=== PATIENT | female | born 1985 | race African-American/Black ===

== ENCOUNTER 2017-11-15 22:53 | Emergency (ER) | payer OTHER ==
[~2017-11-15] VITALS: Ht 165.1 cm; Wt 140.0 kg
[~2017-11-15 22:53] MED LIST: OXYC-360 PO; PREN0.01 PO
[2017-11-15 23:14] VITALS: BP 148/75; PULSE 84; RESP 18; TEMP 99; O2SAT 100
[2017-11-16 00:48] LABS: AUTOMATED NEUTROPHIL # 6.5 TH/MM3 (1.8-7.7); BASOPHIL % 0.3 % (0.0-2.0); EOSINOPHIL % 0.3 % (0.0-4.0); HEMATOCRIT 39.3 % (35.0-46.0); HEMOGLOBIN 12.9 GM/DL (11.6-15.3); LYMPH % 21.9 % (9.0-44.0); MEAN CELL VOLUME 81.4 FL (80.0-100.0); MEAN CORPUSCULAR HEMOGLOBIN 26.7 PG (27.0-34.0); MEAN CORPUSCULAR HGB CONC 32.8 % (32.0-36.0); MONO % 5.5 % (0.0-8.0); MONOCYTE # 0.5 TH/MM3 (0-0.9); PLATELET COUNT 301 TH/MM3 (150-450); RED BLOOD COUNT 4.83 MIL/MM3 (4.00-5.30); RED CELL DISTRIBUTION WIDTH 16.4 % (11.6-17.2)
[2017-11-16 00:58] LABS: ALBUMIN 3.2 GM/DL (3.4-5.0); ALT (GPT) 20 U/L (10-53); AST (GOT) 12 U/L (15-37); BICARBONATE 28.5 MEQ/L (21.0-32.0); BLOOD UREA NITROGEN 12 MG/DL (7-18); CALCIUM 8.5 MG/DL (8.5-10.1); CHLORIDE 105 MEQ/L (98-107); CREATININE 0.99 MG/DL (0.50-1.00); GLOMERULAR FILTRATION RATE 78 ML/MIN (>89); GLUCOSE,RANDOM 77 MG/DL (74-106); SODIUM (NA) 141 MEQ/L (136-145)
[2017-11-16] MEDS ORDERED: ONDANSETRON HCL 4 MG/2 ML VIAL IV PUSH ONE ×2 (01:00→04:15)
[2017-11-16] MEDS ORDERED: KETOROLAC TROMETHAMINE 30 MG/ML (IVP) VIAL IV PUSH ONE (01:00)
[2017-11-16 01:01] LABS: ALKALINE PHOSPHATASE 66 U/L (45-117); TOTAL BILIRUBIN ADULT 0.3 MG/DL (0.2-1.0); TOTAL PROTEIN 7.6 GM/DL (6.4-8.2)
[2017-11-16 01:34] LABS: BILIRUBIN, URINE NEG (NEG); BLOOD, URINE NEG (NEG); GLUCOSE,URINE NEG (NEG); KETONE, URINE NEG (NEG); MUCUS URINE FEW /lpf (OCC); NITRITE,URINE NEG (NEG); SQUAMOUS EPITHELIAL CELL URINE 10 /hpf (0-5); URINE COLOR YELLOW (YELLW/STRAW); URINE LEUKOCYTE ESTERASE NEG (NEG)
--- NOTE | 2017-11-16 03:37 | RADRPT ---
EXAM DATE/TIME: 11/16/2017 02:51 [facility] COMPARISON: No previous studies available for comparison. INDICATIONS : Flank pain. ORAL CONTRAST: No oral contrast ingested. RADIATION DOSE: 32.28 CTDIvol (mGy) ; Patient body habitus MEDICAL HISTORY : None SURGICAL HISTORY : Tubal ligation. ENCOUNTER: Initial ACUITY: 1 day PAIN SCALE: 7/10 LOCATION: Bilateral abdomen TECHNIQUE: Volumetric scanning of the abdomen and pelvis was performed. Using automated exposure control and ad justment of the mA and/or kV according to patient size, radiation dose was kept as low as reasonably achievable to obtain optimal diagnostic quality images. DICOM format image data is available electro nically for review and comparison. FINDINGS: LOWER LUNGS: The visualized lower lungs are clear. LIVER: Homogeneous density without lesion. There is no dilation of the biliary tree. No calcified gallston es. SPLEEN: Normal size without lesion. PANCREAS: Within normal limits. KIDNEYS: Normal in size and shape. There is no mass, stone, or hydronephrosis on the left. No obstructing gisele culus right kidney measures 3-4 mm. ADRENAL GLANDS: Within normal limits. VASCULAR: There is no aortic aneurysm. BOWEL/MESENTERY: The stomach, small bowel, and colon demonstrate no acute abnormality. Normal appendix. There is no fr ee intraperitoneal air or fluid. ABDOMINAL WALL: Within normal limits. RETROPERITONEUM: There is no lymphadenopathy. BLADDER: No wall thickening or mass. No definite bladder calculi. REPRODUCTIVE: Within normal limits. Few punctate calcifications in the pelvis likely phleboliths. INGUINAL: There is no lymphadenopathy or hernia. MUSCULOSKELETAL: Within normal limits for patient age. CONCLUSION: 1. Nonobstructing right renal calculus. 2. Normal appendix. 3. No evidence for hydronephrosis. Jarocho Abarca MD on November 16, 2017 at 3:33 Board Certified Radiologist. This report was verified electronically.
[2017-11-16] MEDS ORDERED: ZOFR4TAB3 SL (04:16)
--- NOTE | 2017-11-16 04:17 | PD ---
HPI Chief Complaint: Abdominal Pain Time Seen by Provider: 00:58 Travel History International Travel<30 days: No Contact w/Intl Traveler<30days: No Traveled to known affect area: No History of Present Illness HPI 32-year-old female presents to the emergency department complaining of abdominal pain associated with nausea vomiting and diarrhea since 3 PM on Tuesday. Patient denies any known dietary indiscretion normal water ingestion. Symptoms did begin after eating at a fast food restaurant. No hematemesis no coffee-ground emesis no melena or hematochezia. Patient states that pain is unremitting. Patient has not taken any medications for symptom relief. PFSH Past Medical History Narrative Medical Anxiety diabetes Anxiety: Yes Diabetes: Yes Patient Takes Glucophage: Yes (11/15/2017 1500) Diminished Hearing: No Sleep Apnea: Yes Tetanus Vaccination: Unknown Influenza Vaccination: No ?: Unknown LMP: 11/10/2017 Tubal Ligation: Yes Past Surgical History Section: Yes (x2) Social History Alcohol Use: No Tobacco Use: No Substance Use: No Allergies-Medications (Allergen,Severity, Reaction): Coded Allergies: codeine (Unverified Allergy, Mild, 11/15/17) Reported Meds & Prescriptions Reported Meds & Active Scripts Active Zofran Odt (Ondansetron Odt) 4 Mg Tab 4 Mg SL Q6HR PRN Reported Percocet (Oxycodone/Acetaminophen) 5 Mg/325 Mg Tab 1-2 Tab PO Q6-8HPRN FOR PAIN Vit ( Plus) (Prenat Multivit/[place]/Iron/Folic Ac) Tab 1 Tab PO DAILY AT LEAST ONE MONTH Physical Exam Narrative GENERAL: Well-developed well-nourished obese female in no acute distress no respiratory distress SKIN: Warm and dry. HEAD: Normocephalic. EYES: No scleral icterus. No injection or drainage. NECK: Supple, trachea midline. No JVD or lymphadenopathy. CARDIOVASCULAR: Regular rate and rhythm without murmurs, gallops, or rubs. RESPIRATORY: Breath sounds equal bilaterally. No accessory muscle use. GASTROINTESTINAL: Abdomen soft, non-tender, nondistended. MUSCULOSKELETAL: No cyanosis, or edema. BACK: Nontender without obvious deformity. No CVA tenderness. Data Data Last Documented VS Vital Signs Date Time Temp Pulse Resp B/P (MAP) Pulse Ox O2 Delivery O2 Flow Rate FiO2 4/10/18 23:14 99.0 84 18 148/75 (99) 100 Orders Orders Complete Blood Count With Diff (11/16/17 00:15) Comprehensive Metabolic Panel (11/16/17 00:15) Lipase (11/16/17 00:15) Urinalysis - C+S If Indicated (11/16/17 00:15) Ed Urine Pregnancytest Poc (11/16/17 00:15) Ondansetron Inj (Zofran Inj) (11/16/17 01:00) Ketorolac Inj (Toradol Inj) (11/16/17 01:00) Ct Abd/Pel W/O Iv Contrast (11/16/17 ) Ondansetron Inj (Zofran Inj) (11/16/17 04:15) Sodium Chlor 0.9% 1000 Ml Inj (Ns 1000 M (11/16/17 04:30) Ed Discharge Order (11/16/17 05:06) Labs Laboratory Tests Test 11/16/17 00:20 11/16/17 01:00 White Blood Count 9.0 TH/MM3 Red Blood Count 4.83 MIL/MM3 Hemoglobin 12.9 GM/DL Hematocrit 39.3 % Mean Corpuscular Volume 81.4 FL Mean Corpuscular Hemoglobin 26.7 PG Mean Corpuscular Hemoglobin Concent 32.8 % Red Cell Distribution Width 16.4 % Platelet Count 301 TH/MM3 Mean Platelet Volume 8.0 FL Neutrophils (%) (Auto) 72.0 % Lymphocytes (%) (Auto) 21.9 % Monocytes (%) (Auto) 5.5 % Eosinophils (%) (Auto) 0.3 % Basophils (%) (Auto) 0.3 % Neutrophils # (Auto) 6.5 TH/MM3 Lymphocytes # (Auto) 2.0 TH/MM3 Monocytes # (Auto) 0.5 TH/MM3 Eosinophils # (Auto) 0.0 TH/MM3 Basophils # (Auto) 0.0 TH/MM3 CBC Comment DIFF FINAL Differential Comment Blood Urea Nitrogen 12 MG/DL Creatinine 0.99 MG/DL Random Glucose 77 MG/DL Total Protein 7.6 GM/DL Albumin 3.2 GM/DL Calcium Level 8.5 MG/DL Alkaline Phosphatase 66 U/L Aspartate Amino Transf (AST/SGOT) 12 U/L Alanine Aminotransferase (ALT/SGPT) 20 U/L Total Bilirubin 0.3 MG/DL Sodium Level 141 MEQ/L Potassium Level 3.6 MEQ/L Chloride Level 105 MEQ/L Carbon Dioxide Level 28.5 MEQ/L Anion Gap 8 MEQ/L Estimat Glomerular Filtration Rate 78 ML/MIN Lipase 89 U/L Urine Color YELLOW Urine Turbidity CLEAR Urine pH 8.0 Urine Specific [place] 1.023 Urine Protein NEG mg/dL Urine Glucose (UA) NEG mg/dL Urine Ketones NEG mg/dL Urine Occult Blood NEG Urine Nitrite NEG Urine Bilirubin NEG Urine Urobilinogen LESS THAN 2.0 MG/DL Urine Leukocyte Esterase NEG Urine RBC LESS THAN 1 /hpf Urine WBC 1 /hpf Urine Squamous Epithelial Cells 10 /hpf Urine Mucus FEW /lpf Microscopic Urinalysis Comment CULT NOT INDICATED MDM Medical Decision Making Medical Screen Exam Complete: Yes Emergency Medical Condition: Yes Medical Record Reviewed: Yes Interpretation(s) Last Impressions Abdomen/Pelvis CT 11/16/17 0000 Signed Impressions: Service Date/Time: Thursday, November 16, 2017 02:51 - CONCLUSION: 1. Nonobstructing right renal calculus. 2. Normal appendix. 3. No evidence for hydronephrosis. Jarocho Abarca MD CBC & BMP Diagram 11/16/17 00:20 Total Protein 7.6, Albumin 3.2 L, Calcium Level 8.5, Alkaline Phosphatase 66, Aspartate Amino Transf (AST/SGOT) 12 L, Alanine Aminotransferase (ALT/SGPT) 20, Total Bilirubin 0.3 Vital Signs Date Time Temp Pulse Resp B/P (MAP) Pulse Ox O2 Delivery O2 Flow Rate FiO2 11/15/17 23:14 99.0 84 18 148/75 (99) 100 Differential Diagnosis Abdominal pain, gastroenteritis, foodborne illness, UTI, ectopic , appendicitis Narrative Course Patient placed n.p.o. on IV access his IV fluids Lab values collected and sent for resulting CT abdomen pelvis reveals no acute abnormality Patient administered Toradol for pain; patient is stable for outpatient management Diagnosis Primary Impression: Abdominal pain Qualified Codes: R10.13 - Epigastric pain Referrals: Primary Care Physician call for appointment Patient Instructions: General Instructions Additional Instructions: Follow clear liquid diet for next 12-24 hours advance as tolerated to bland/ brat diet and regular diabetic diet avoiding fried and fatty foods Take Zofran as prescribed as needed for nausea and/or vomiting Take ibuprofen/Advil/Motrin every 6-8 hours as needed for pain associated with inflammation or for fever 100.4F or greater Take acetaminophen as needed for fever 100.4F or greater No work 1 day Follow up with your primary care provider Return to the emergency department for any concerns or change in condition Med/Other Pt SpecificInfo: Prescription(s) given Scripts Ondansetron Odt (Zofran Odt) 4 Mg Tab 4 MG SL Q6HR Y for Nausea/Vomiting, #10 TAB 0 Refills Prov: Marie Larsen MD 11/16/17 Disposition: 01 DISCHARGE HOME Condition: Stable Marie Larsen MD Nov 16, 2017 04:17
[2017-11-16] MEDS ORDERED: SODIUM CHLOR 0.9% 1000 ML INJ 1,000 ML IV ONE (04:30)
== END 2017-11-16 05:46 | disposition home or self-care (01) ==
LOC: NEPC 22:53
DX: R10.13 Epigastric pain (principal); N20.0 Calculus of kidney; R11.2 Nausea with vomiting, unspecified; R19.7 Diarrhea, unspecified; F41.9 Anxiety disorder, unspecified; E11.9 Type 2 diabetes mellitus without complications; G47.30 Sleep apnea, unspecified; Z88.5 Allergy status to narcotic agent
CPT/HCPCS: 74176; 80053; 81001; 83690; 84703; 85025; 96361; 96374; 96375; 96376; 99284; J1885; J2405; J7030

== ENCOUNTER 2017-12-02 06:23 | Day surgery (SDC) | payer OTHER ==
[~2017-12-02] VITALS: Ht 165.1 cm; Wt 141.4 kg
[~2017-12-02 06:23] MED LIST changes: +ZOFR4TAB3 SL
[2017-12-02 07:30] VITALS: BP 155/78; PULSE 82; RESP 20; TEMP 98.2; O2SAT 99
[2017-12-02] MEDS ORDERED: FLUT1SPR5 EACH NARE (07:30)
[2017-12-02] MEDS ORDERED: METF500T PO (07:30)
[2017-12-02 08:25] LABS: AUTOMATED NEUTROPHIL # 3.3 TH/MM3 (1.8-7.7); BASOPHIL % 0.5 % (0.0-2.0); EOSINOPHIL # 0.1 TH/MM3 (0-0.4); EOSINOPHIL % 1.9 % (0.0-4.0); HEMATOCRIT 37.3 % (35.0-46.0); HEMOGLOBIN 12.2 GM/DL (11.6-15.3); LYMPH % 32.8 % (9.0-44.0); LYMPHOCYTE # 1.9 TH/MM3 (1.0-4.8); MEAN CELL VOLUME 81.8 FL (80.0-100.0); MEAN CORPUSCULAR HEMOGLOBIN 26.8 PG (27.0-34.0); MEAN CORPUSCULAR HGB CONC 32.8 % (32.0-36.0); MEAN PLATELET VOLUME 8.2 FL (7.0-11.0); MONO % 6.9 % (0.0-8.0); MONOCYTE # 0.4 TH/MM3 (0-0.9); NEUT % 57.9 % (16.0-70.0); PLATELET COUNT 277 TH/MM3 (150-450); RED BLOOD COUNT 4.56 MIL/MM3 (4.00-5.30); RED CELL DISTRIBUTION WIDTH 16.4 % (11.6-17.2); WHITE BLOOD COUNT 5.7 TH/MM3 (4.0-11.0)
[2017-12-02 08:36] LABS: PROTHROMBIN TIME - PATIENT 10.2 SEC (9.8-11.6)
[2017-12-02 09:00] VITALS: BP 127/69; PULSE 77; RESP 20; TEMP 98.5; O2SAT 97
--- NOTE | 2017-12-02 09:16 | PD.RAD ---
Post Procedure Progress Note Pre Procedure Diagnosis: (1) Pseudotumor cerebri Post Procedure Diagnosis: (1) Pseudotumor cerebri Procedure Date: Dec 02, 2017 Supervising Radiologist: Renny Jordan Proceduralist/Assist: Killian Griffith, RT(R), Gisela Jones RT(R) Anesthesia: Local Plan of Activity Patient to Unit: ROPU Patient Condition: Good See PACS Report for procedural detail/treatment Spinal Procedure Lumbar Puncture L3-L4 Fluid Removal (CCs): 21 (opening pressure 43 closing 22) Fluid Description: Renny Bernard MD Dec 02, 2017 09:16
[2017-12-02 09:36] LABS: TOTAL PROTEIN,CSF 20.1 MG/DL (15.0-45.0)
[2017-12-02 10:12] LABS: SUPERNATE COLOR TUBE #1 CLEAR (CLEAR)
[2017-12-02 10:13] LABS: CSF LYMPHOCYTES 0 %; CSF NEUTROPHILS 0 %; RBC TUBE #1 1 /MM3; WBC TUBE #1 0 /MM3 (0-10)
[2017-12-02 10:14] LABS: CSF LYMPHOCYTES 0 %; CSF NEUTROPHILS 0 %; RBC TUBE #4 0 /MM3; WBC TUBE #4 0 /MM3 (0-10)
--- NOTE | 2017-12-02 10:24 | RADRPT ---
EXAM DATE/TIME: 12/02/2017 08:49 [facility] COMPARISON: No previous studies available for comparison. INDICATIONS : Patient presents with pseudotumor cerebri in need of lumbar puncture with opening and closing pressur es. MEDICAL HISTORY : Migraine Obesity Sleep apnea Allergic Rhinitis Carpal tunnel Diabetes DVT SURGICAL HISTORY : Tubal ligation ENCOUNTER: Initial ACUITY: 3 weeks PAIN SCORE: 0/10 LOCATION: N/A LUMBAR PUNCTURE TIME: 0850 hours FLUORO TIME: 0.7 minutes IMAGE SERIES: 1 ACCESS LEVEL: L3-4 OPENING PRESSURE: 43 cm of water CLOSING PRESSURE: 22 cm of water FLUID: 12 cc of clear CSF was collected and sent to the laboratory for analysis. PROCEDURE : 1. Fluoroscopic guided lumbar puncture. 2. Recording of opening pressure. The risks, benefits and alternatives to the procedure were explained and verbal and written consent w as obtained. The site was prepped in sterile fashion. Full sterile technique was used, including ca p, mask, sterile gloves and gown and a large sterile sheet. Hand hygiene and 2% chlorhexidine and/or betadine/alcohol prep was utilized per protocol for cutaneous antisepsis. The skin and subcutaneous tissues were infiltrated with local anesthetic solution. With fluoroscopic guidance the lumbar thecal sac was punctured at the above level described above and the opening pressure was recorded. The above described fluid was removed without difficulty. The patient tolerated the procedure well and there were no complications. CONCLUSION: Uncomplicated fluoroscopically guided lumbar puncture with pressures as above. Renny Jordan MD on December 02, 2017 at 10:21 Board Certified Radiologist. This report was verified electronically.
[2017-12-02 10:55] VITALS: BP 169/89; PULSE 92; RESP 18; O2SAT 99
[2017-12-05 09:05] LABS: CSF CRYPTOCOCCUS AG CONF ND (NOT DETECTD)
[2017-12-06 19:53] LABS: VDRL CSF NON-REACTIVE (NON-REACTVE)
[2017-12-07 03:49] LABS: CSF CRYPTOCOCCUS ANTIGEN NOT DETECTED (NEGATIVE)
== END 2017-12-02 11:00 | disposition home or self-care (01) ==
LOC: HROP 06:23 → HRIP 06:24 → HROP 11:00
PROVIDERS: ATTEND Psychiatry & Neurology Vascular Neurology
DX: G93.2 Benign intracranial hypertension (principal); Z79.84 Long term (current) use of oral hypoglycemic drugs; Z79.899 Other long term (current) drug therapy
CPT/HCPCS: 62270; 77003; 82945; 84157; 85025; 85610; 85730; 86403; 86592; 87015; 87070; 87102; 87116; 87205; 87206; 89051